=== PATIENT | male | born 1955 | race Caucasian/White ===

== ENCOUNTER → 2019-07-27 | Outpatient (CLI) | payer OTHER ==
[2019-07-27 17:56] LABS: BASOPHILS ABSOLUTE AUTO 0.04 K/mm3 (0.00-0.23); BASOPHILS PERCENT AUTO 1 % (0-2); EOSINOPHILS ABSOLUTE AUTO 0.19 K/mm3 (0.00-0.68); EOSINOPHILS PERCENT AUTO 3 % (0-6); Hematocrit 45.3 % (37.0-53.0); IMMATURE GRAN ABSOLUTE AUTO 0.02 K/mm3 (0.00-0.10); IMMATURE GRAN PERCENT AUTO 0 % (0-1); LYMPHOCYTES ABSOLUTE AUTO 1.81 K/mm3 (0.84-5.20); LYMPHOCYTES PERCENT AUTO 25 % (21-46); MONOCYTES ABSOLUTE AUTO 0.52 K/mm3 (0.16-1.47); MONOCYTES PERCENT AUTO 7 % (4-13); Mean Corpuscular HGB 29.6 pg (26.0-34.0); Mean Corpuscular HGB Conc 33.1 g/dL (31.5-36.5); Mean Corpuscular Volume 90 fL (80-100); Mean Platelet Volume 10.4 fL (9.1-12.4); NEUTROPHILS ABSOLUTE AUTO 4.64 K/mm3 (1.96-9.15); NEUTROPHILS PERCENT AUTO 64 % (41-73); Platelet Count 263 K/mm3 (150-400); RDW Coefficient Variation 13.5 % (11.7-14.2); RDW Standard Deviation 44.5 fL (35.1-46.3); Red Blood Cell Count 5.06 M/mm3 (4.30-5.90); White Blood Cell Count 7.22 K/mm3 (4.00-11.30)
[2019-07-27 18:14] LABS: Alanine Aminotransfer (ALT/SGP 27 U/L (12-78); Albumin, Blood 4.2 g/dL (3.4-5.0); Albumin/Globulin Ratio 1.2 (0.8-1.8); Alk Phos 70 U/L (50-136); Anion Gap 2 mmol/L (6-16); Aspartate Aminotrans (AST/SGOT 18 U/L (12-37); Bilirubin, Total 0.6 mg/dL (0.1-1.0); Blood Urea Nitrogen 20 mg/dL (8-24); Bun/Creatinine Ratio 21.2 (12.0-20.0); CO2, Blood 27 mmol/L (21-32); Calcium, Blood 8.4 mg/dL (8.5-10.1); Chloride, Blood 110 mmol/L (98-108); Cholesterol 206 mg/dL (50-200); Creatinine, Blood 0.94 mg/dL (0.60-1.20); Free Thyroxine 1.01 ng/dL (0.70-1.60); Globulin, Blood 3.5 g/dL (2.2-4.0); Glomerular Filtration Rate >60 (60-); Glucose, Blood 90 mg/dL (70-99); Potassium, Blood 4.1 mmol/L (3.5-5.5); Sodium, Blood 139 mmol/L (136-145); Total Protein, Blood 7.7 g/dL (6.4-8.2); Triglycerides 101 mg/dL (30-160); Very Low Density Lipoprot Chol 20 mg/dL (6-32)
[2019-07-27 18:20] LABS: CHOL/HDL RATIO 4.1; HDL Cholesterol 50 mg/dL (>39); LDL Direct Measurement 130 mg/dL (0-130); LDL/HDL RATIO 2.7; Low Density Lipoprotein Chol 136 mg/dL (0-110)
== END | disposition home or self-care (01) ==
LOC: LAB SHORT 16:15 → LAB 16:15
PROVIDERS: Nurse Practitioner Family
DX: E78.5 Hyperlipidemia, unspecified (principal); E03.9 Hypothyroidism, unspecified; I10 Essential (primary) hypertension
CPT/HCPCS: 80053; 80061; 83721; 84439; 84443; 85025

== ENCOUNTER 2019-08-24 10:08 | Emergency (ER) | payer OTHER ==
[~2019-08-24] VITALS: Ht 177.8 cm; Wt 102.1 kg
[2019-08-24 10:25] LABS: BASOPHILS ABSOLUTE AUTO 0.07 K/mm3 (0.00-0.23); BASOPHILS PERCENT AUTO 1 % (0-2); EOSINOPHILS ABSOLUTE AUTO 0.24 K/mm3 (0.00-0.68); EOSINOPHILS PERCENT AUTO 3 % (0-6); Hematocrit 44.7 % (37.0-53.0); Hemoglobin 15.2 g/dL (13.5-17.5); IMMATURE GRAN ABSOLUTE AUTO 0.03 K/mm3 (0.00-0.10); IMMATURE GRAN PERCENT AUTO 0 % (0-1); LYMPHOCYTES PERCENT AUTO 40 % (21-46); MONOCYTES ABSOLUTE AUTO 0.72 K/mm3 (0.16-1.47); MONOCYTES PERCENT AUTO 10 % (4-13); Mean Corpuscular HGB 29.6 pg (26.0-34.0); Mean Corpuscular Volume 87 fL (80-100); NEUTROPHILS ABSOLUTE AUTO 3.22 K/mm3 (1.96-9.15); NEUTROPHILS PERCENT AUTO 46 % (41-73); Platelet Count 284 K/mm3 (150-400); RDW Coefficient Variation 13.2 % (11.7-14.2); RDW Standard Deviation 42.4 fL (35.1-46.3); Red Blood Cell Count 5.13 M/mm3 (4.30-5.90); White Blood Cell Count 7.08 K/mm3 (4.00-11.30)
[2019-08-24 10:38] LABS: International Normalized Ratio 0.97; Prothrombin Time Results 10.4 Sec (9.7-11.5)
[2019-08-24 10:42] LABS: Alanine Aminotransfer (ALT/SGP 32 U/L (12-78); Albumin, Blood 4.2 g/dL (3.4-5.0); Albumin/Globulin Ratio 1.2 (0.8-1.8); Alk Phos 94 U/L (50-136); Anion Gap 6 mmol/L (6-16); Aspartate Aminotrans (AST/SGOT 30 U/L (12-37); Bilirubin, Total 0.5 mg/dL (0.1-1.0); Blood Urea Nitrogen 14 mg/dL (8-24); Bun/Creatinine Ratio 15.7 (12.0-20.0); CO2, Blood 25 mmol/L (21-32); Calcium, Blood 9.3 mg/dL (8.5-10.1); Chloride, Blood 110 mmol/L (98-108); Creatinine, Blood 0.89 mg/dL (0.60-1.20); Ethanol (Alcohol), Blood, Med <3 mg/dL; Globulin, Blood 3.6 g/dL (2.2-4.0); Glomerular Filtration Rate >60 (60-); Glucose, Blood 126 mg/dL (70-99); Potassium, Blood 3.8 mmol/L (3.5-5.5); Sodium, Blood 141 mmol/L (136-145); Total Protein, Blood 7.8 g/dL (6.4-8.2)
[2019-08-24 10:51] LABS: Source, Urine Clean Catch
[2019-08-24] MEDS ORDERED: LEVSOD112 PO (10:52)
[2019-08-24] MEDS ORDERED: AMLO10 PO (10:53)
[2019-08-24] MEDS ORDERED: Prinivil10 MG PO (10:53)
[2019-08-24 10:58] LABS: Bilirubin, Urine Neg (Neg); Blood, Urine 5+ (Neg); Glucose Qualitative, Urine Neg (Neg); Ketones, Urine Neg (Neg); Leukocyte Esterase, Urine Neg (Neg); Nitrite, Urine Neg (Neg); Protein, Urine Neg (Neg); Urobilinogen, Urine NORM (Normal)
[2019-08-24 11:08] LABS: Appearance, Urine Hazy (Clear); Color, Urine Other (P-Yellow)
[2019-08-24 11:10] LABS: Red Blood Cells, Urine 50-100 /hpf (0-2); White Blood Cells, Urine 0-2 /hpf (0-5)
[2019-08-24 11:11] LABS: Squamous Epithelial Cells Not Seen /hpf (Few)
[2019-08-24 11:12] LABS: Bacteria Rare /hpf
[2019-08-24] MEDS ORDERED: Roxicodone5 MG PO (13:37)
== END 2019-08-24 13:44 | disposition home or self-care (01) ==
LOC: ER 10:08
PROVIDERS: Emergency Medicine
DX: S06.0X9A Concussion with loss of consciousness of unspecified duration, initial encounter (principal); S01.01XA Laceration without foreign body of scalp, initial encounter; I10 Essential (primary) hypertension; E03.9 Hypothyroidism, unspecified; Z87.891 Personal history of nicotine dependence; Z79.899 Other long term (current) drug therapy; V89.2XXA Person injured in unspecified motor-vehicle accident, traffic, initial encounter
CPT/HCPCS: 12001; 12011; 36415; 70450; 71260; 72125; 74177; 80053; 81001; 83690; 85025; 85610; 96374-59; 96375-59; 99284-25; G0480; J1170; J2405; Q9967

== ENCOUNTER 2023-02-25 07:35 | Day surgery (SDC) | payer MEDICARE, OTHER ==
[2023-02-25] VITALS (15 sets, daily range): BP systolic 128–168; BP diastolic 82–101
[~2023-02-25] VITALS: Ht 177.8 cm; Wt 98.0 kg
[~2023-02-25 07:35] MED LIST: AMLO10 PO; ATORVASTATIN CA40 M1 PO; Aspir 8181 MG PO; Carvedilol12.5 MG PO; LEVSOD112 PO; Prinivil10 MG PO; Roxicodone5 MG PO
--- NOTE | 2023-02-25 11:45 | NUR ---
PT BACK TO RECOVERY. DR WESTBROOK IN TO SPEAK TO PT AND SPOUSE. TR BAND PLACED TO R WRIST. NO SWELLING OR BLEEDING AT THIS TIME. VSS.
--- NOTE | 2023-02-25 12:28 | NUR ---
PT AMBULATES UP TO BR AND BACK TO RECLINER.
--- NOTE | 2023-02-25 12:50 | NUR ---
TR BAND REMOVED AND APPROX 5X5 CM HEMATOMA NOTED UNDER TR BAND. PRESSURE HELD FOR APPROX 10 MIN. HEMATOMA FLATTENTED. PT EDUCATED ON IMPORTANCE OF HOLDING PRESSSURE IF HE NOTICES SWELLING OR BLEEDING AFTER DC. PT AND SPOUSE VERABALIZE INSTRUCTIONS. DR INGRAM IN TO SEE PT. PT VERBALIZE UNDERSTANDING OF TAKING PLAVIX DAILY.
[2023-02-25] MEDS ORDERED: CLOP75 PO (13:05)
--- NOTE | 2023-02-25 14:13 | NUR ---
12CC AIR REMOVED FROM R WRIST TR BAND. NO BLEEDING OR SWELLING.
--- NOTE | 2023-02-25 15:00 | NUR ---
DOT CLOTH DRESSING APPLIED, COBAN PRESSURE DRESSING PLACED AND PT AND SPOUSE INSTRUCTED TO REMOVE IN 3 HOURS. IV D/C CATHETER INTACT. PT WHEELED OUT TO ENTRANCE WITH BELONGINGS AND WRITTEN INSTRUCTIONS.
== END 2023-02-25 15:00 | disposition home or self-care (01) ==
LOC: MHTC 07:35
DX: R07.89 Other chest pain (principal); R94.39 Abnormal result of other cardiovascular function study; R53.83 Other fatigue; R06.02 Shortness of breath; I10 Essential (primary) hypertension; Z87.891 Personal history of nicotine dependence
CPT/HCPCS: 76937; 85347; 92978; 93458; 99152; 99153; A9270; C1725; C1753; C1761; C1769; C1874; C1887; C1894; C9600; C9602; J0461; J1644; J2250; J2371; J3010; J7030; J7040; J7050; Q9967